=== PATIENT | male | born 1970 | race Hispanic/Latino ===

== ENCOUNTER 2023-01-12 14:22 | Inpatient (IN) | payer SELFPAY ==
[~2023-01-12] VITALS: Ht 160 cm; Wt 77.1 kg
[2023-01-12] MEDS ORDERED: Vancomycin IV 1 GM in SODIUM CHLORIDE 0.9% 250ML 250 ML IV ONE (14:45)
[2023-01-12 14:58] LABS: BASOPHILS % 0.3 % (0.0-1.0); EOSINOPHILS # (AUTO) 0.1 (0.0-0.4); EOSINOPHILS % 0.8 % (0.0-6.0); HEMATOCRIT 41.1 % (38.2-49.6); HEMOGLOBIN 14.1 g/dL (14.0-18.0); LYMPHOCYTES # (AUTO) 2.3 (1.0-3.2); LYMPHOCYTES % 17.1 % (18.0-39.1); MEAN CORPUSCULAR HGB CONC 34.3 g/dL (31-35); MEAN CORPUSCULAR VOLUME 81.5 fL (81-99); MONOCYTES # (AUTO) 1.3 (0.2-0.8); MONOCYTES % 9.8 % (4.4-11.3); NEUTROPHILS # (AUTO) 9.5 (2.1-6.9); NEUTROPHILS % 71.3 % (38.7-80.0); PLATELET COUNT 282 x10e3/uL (140-360); RED BLOOD COUNT 5.04 x10e6/uL (4.3-5.7); RED CELL DISTRIBUTION WIDTH 12.8 % (11.7-14.4)
[2023-01-12 15:08] LABS: ALBUMIN 3.5 g/dL (3.5-5.0); ALBUMIN/GLOBULIN RATIO 0.8 (0.8-2.0); ANION GAP 16.9 mmol/L (8-16); CALCIUM 9.6 mg/dL (8.4-10.2); CREATININE, SERUM 0.92 mg/dL (0.72-1.25); POTASSIUM 3.9 mmol/L (3.5-5.1)
[2023-01-12] MEDS: HYDROCODONE/APAP 5MG-325MG TAB PO PRN (15:08)
[2023-01-12] MEDS ORDERED: INSULIN REGULAR, HUMAN 100 UNIT/1 ML SQ ONE (15:15)
[2023-01-12] MEDS ORDERED: SODIUM CHLORIDE 0.9% 1000ML 1,000 ML IV ONE (15:15)
[2023-01-12] MEDS ORDERED: SODIUM CHLORIDE 0.9% 1000ML 1,000 ML ONE (15:18)
[2023-01-12] MEDS ORDERED: IOPAMIDOL 370 MG/ML 100 ML INFUS..BTL INJ ONE (15:36)
[2023-01-12] MEDS ORDERED: SODIUM CHLORIDE FLUSH 10 ML SYR INJ PRN (16:45)
[2023-01-12] MEDS ORDERED: DEXTROSE 50% SYRINGE 50 ML IV PRN (16:45)
[2023-01-12] MEDS ORDERED: Morphine 4mg INJECTION 4 MG/ML INJ IV PRN (16:45)
[2023-01-12] MEDS: INSULIN REGULAR, HUMAN 100 UNIT/1 ML SQ SCH ×2 (17:00→22:35)
[2023-01-12] MEDS ORDERED: HYDROCODONE/APAP 5MG-325MG TAB PO ONE (18:00)
[2023-01-12] MEDS ORDERED: IBUPROFEN 600 MG TAB PO PRN (19:15)
[2023-01-12 19:33] LABS: CHOL/HDL RATIO 9.7 (3.9-4.7); CHOLESTEROL 368 MD/DL (0-199); HDL CHOLESTEROL 38 MG/DL (40-60); TRIGLYCERIDES 998 MG/DL (0-149)
[2023-01-12 20:20] VITALS: BP 118/79; PULSE 103; RESP 17; TEMP 98.9; O2SAT 100
[2023-01-12 21:00] VITALS: BP 118/79; PULSE 103; RESP 17; TEMP 98.9; O2SAT 100
[2023-01-12 21:44] VITALS: BP 118/79; PULSE 103; RESP 17; TEMP 100.3; O2SAT 100
[2023-01-13] VITALS (7 sets, daily range): BP systolic 102–138; BP diastolic 67–84; PULSE 83–100; RESP 16–20; TEMP 97.6–99.6; O2SAT 99–100
[2023-01-13] MEDS: HYDROCODONE/APAP 5MG-325MG TAB PO PRN ×4 (03:46→20:46)
[2023-01-13] MEDS: Vancomycin IV 1 GM in SODIUM CHLORIDE 0.9% 250ML 250 ML IV SCH ×2 (05:20→17:20)
[2023-01-13 06:54] LABS: BASOPHILS # (AUTO) 0.1 (0.0-0.1); BASOPHILS % 0.4 % (0.0-1.0); EOSINOPHILS # (AUTO) 0.2 (0.0-0.4); EOSINOPHILS % 1.7 % (0.0-6.0); HEMATOCRIT 36.8 % (38.2-49.6); HEMOGLOBIN 12.2 g/dL (14.0-18.0); LYMPHOCYTES % 17.2 % (18.0-39.1); MEAN CORPUSCULAR HGB CONC 33.2 g/dL (31-35); MEAN CORPUSCULAR VOLUME 84.6 fL (81-99); MONOCYTES # (AUTO) 1.3 (0.2-0.8); MONOCYTES % 11.2 % (4.4-11.3); NEUTROPHILS # (AUTO) 7.9 (2.1-6.9); NEUTROPHILS % 68.9 % (38.7-80.0); PLATELET COUNT 234 x10e3/uL (140-360); RED BLOOD COUNT 4.35 x10e6/uL (4.3-5.7); RED CELL DISTRIBUTION WIDTH 12.5 % (11.7-14.4)
[2023-01-13 07:30] LABS: ANION GAP 12.9 mmol/L (8-16); CALCIUM 8.5 mg/dL (8.4-10.2); CREATININE, SERUM 0.73 mg/dL (0.72-1.25)
[2023-01-13 07:35] LABS: POTASSIUM 2.9 mmol/L (3.5-5.1)
[2023-01-13] MEDS ORDERED: POTASSIUM CHLORIDE 20 MEQ TAB CR PO STA (07:52)
[2023-01-13] MEDS: FENOFIBRATE 145 MG TAB PO SCH (09:06)
[2023-01-13] MEDS: INSULIN REGULAR, HUMAN 100 UNIT/1 ML SQ SCH ×4 (09:08→21:01)
[2023-01-13] MEDS: INSULIN GLARGINE 100 UNITS/ML VIAL SQ SCH (09:11)
[2023-01-13] MEDS: ATORVASTATIN 40 MG TAB PO SCH (20:46)
[2023-01-14] VITALS (7 sets, daily range): BP systolic 106–130; BP diastolic 60–78; PULSE 86–94; RESP 16–20; TEMP 97.3–99.5; O2SAT 98–100
[2023-01-14] MEDS: HYDROCODONE/APAP 5MG-325MG TAB PO PRN ×3 (02:08→22:17)
[2023-01-14] MEDS: Vancomycin IV 1 GM in SODIUM CHLORIDE 0.9% 250ML 250 ML IV SCH ×2 (05:37→18:11)
[2023-01-14] MEDS: INSULIN REGULAR, HUMAN 100 UNIT/1 ML SQ SCH ×4 (08:30→22:03)
[2023-01-14] MEDS: INSULIN GLARGINE 100 UNITS/ML VIAL SQ SCH (09:34)
[2023-01-14] MEDS: FENOFIBRATE 145 MG TAB PO SCH (09:43)
[2023-01-14] MEDS ORDERED: MUPIROCIN 2% OINT 22 GM TUBE TOP SCH ×2 (12:30→21:00)
[2023-01-14] MEDS: MUPIROCIN 2% OINT 22 GM TUBE TOP SCH (21:00)
[2023-01-14] MEDS: ATORVASTATIN 40 MG TAB PO SCH (22:00)
[2023-01-15] VITALS (7 sets, daily range): BP systolic 116–142; BP diastolic 69–83; PULSE 79–88; RESP 16–18; TEMP 97.5–98.8; O2SAT 99–100
[2023-01-15] MEDS: HYDROCODONE/APAP 5MG-325MG TAB PO PRN ×3 (04:26→19:21)
[2023-01-15] MEDS: Vancomycin IV 1 GM in SODIUM CHLORIDE 0.9% 250ML 250 ML IV SCH ×2 (05:11→17:00)
[2023-01-15] MEDS: FENOFIBRATE 145 MG TAB PO SCH (09:23)
[2023-01-15] MEDS: INSULIN GLARGINE 100 UNITS/ML VIAL SQ SCH (09:23)
[2023-01-15] MEDS: INSULIN REGULAR, HUMAN 100 UNIT/1 ML SQ SCH ×4 (09:24→21:13)
[2023-01-15] MEDS: MUPIROCIN 2% OINT 22 GM TUBE TOP SCH ×2 (09:28→17:00)
[2023-01-15] MEDS: ATORVASTATIN 40 MG TAB PO SCH (21:07)
[2023-01-16] VITALS: BP 134/82; PULSE 90; RESP 20; TEMP 98.4; O2SAT 100
[2023-01-16 01:36] VITALS: BP 134/82; PULSE 90; RESP 20; TEMP 98.4; O2SAT 100
[2023-01-16] MEDS: HYDROCODONE/APAP 5MG-325MG TAB PO PRN ×2 (03:44→09:36)
[2023-01-16 04:00] VITALS: BP 147/87; PULSE 84; RESP 20; TEMP 98.6; O2SAT 100
[2023-01-16] MEDS: Vancomycin IV 1 GM in SODIUM CHLORIDE 0.9% 250ML 250 ML IV SCH (07:09)
[2023-01-16 07:44] VITALS: BP 128/81; PULSE 83; RESP 18; TEMP 98.3; O2SAT 98
[2023-01-16 08:05] VITALS: BP 128/81; PULSE 83; RESP 18; TEMP 98.3; O2SAT 98
[2023-01-16] MEDS: FENOFIBRATE 145 MG TAB PO SCH (09:28)
[2023-01-16] MEDS: MUPIROCIN 2% OINT 22 GM TUBE TOP SCH (09:29)
[2023-01-16] MEDS: INSULIN GLARGINE 100 UNITS/ML VIAL SQ SCH (09:29)
[2023-01-16] MEDS: INSULIN REGULAR, HUMAN 100 UNIT/1 ML SQ SCH ×2 (09:30→12:25)
[2023-01-16 11:23] VITALS: BP 131/90; PULSE 88; RESP 17; TEMP 98.5; O2SAT 99
[2023-01-16] MEDS ORDERED: MINOCYCLINE HC100 M1 PO (11:27)
[2023-01-16] MEDS ORDERED: ATORVASTATIN CA40 MG PO (11:27)
[2023-01-16] MEDS ORDERED: Insulin Glargine SQ (11:27)
[2023-01-16] MEDS ORDERED: FENOFIBRATE145 MG PO (11:27)
== END 2023-01-16 12:47 | disposition home or self-care (01) | DRG 603 ==
LOC: ER 14:29 → ERHOLD 16:47 → MED/SURG3 20:10
PROVIDERS: ADMIT Internal Medicine; ATTEND Internal Medicine
DX: L03.811 Cellulitis of head [any part, except face] (principal); E87.1 Hypo-osmolality and hyponatremia; L02.821 Furuncle of head [any part, except face]; E11.9 Type 2 diabetes mellitus without complications; E78.5 Hyperlipidemia, unspecified; E78.1 Pure hyperglyceridemia; E87.6 Hypokalemia; B95.61 Methicillin susceptible Staphylococcus aureus infection as the cause of diseases classified elsewhere; Z91.148 Patient's other noncompliance with medication regimen for other reason
CPT/HCPCS: 0223U; 36415; 70491; 80048; 80053; 80061; 80202; 82948; 83036; 83605; 84132; 85025; 87040; 87071; 87081; 87186; 87205; 99252; 99284; J0692; J7030; J7050; Q9967